=== PATIENT | female | born 1960 | race Caucasian/White ===

== ENCOUNTER 2024-04-09 10:30 | Outpatient (RCR) | payer BC ==
[~2024-04-09 10:30] MED LIST: NEURONTIN600 MG/TAB PO; NEURONTIN800 MG/TAB PO; PROTONIX 40MG T40 MG PO; VAGIFEM10 MCG VG
== END 2024-04-17 | disposition home or self-care (01) ==
LOC: WSST
DX: G40.209 Localization-related (focal) (partial) symptomatic epilepsy and epileptic syndromes with complex partial seizures, not intractable, without status epilepticus (principal); R41.89 Other symptoms and signs involving cognitive functions and awareness; S06.0X9S Concussion with loss of consciousness of unspecified duration, sequela

== ENCOUNTER → 2024-06-12 | Outpatient (CLI) | payer BC | LOC: MC.RAD 14:55 | DX: Z12.31 Encounter for screening mammogram for malignant neoplasm of breast (principal) ==